=== PATIENT | female | born 1995 | race Caucasian/White ===

== ENCOUNTER 2019-05-08 15:07 | Inpatient (IN) | payer OTHER ==
[~2019-05-08 15:07] MED LIST: OXYTOCIN 30 UNITS/LR 500 ML BAG IV
[2019-05-08] MEDS ORDERED: METHYLERGONOVINE 0.2 MG INJ IM (15:30)
[2019-05-08] MEDS ORDERED: CARBOPROST 250 MCG INJ IM (15:30)
[2019-05-08] MEDS ORDERED: MISOPROSTOL 200 MCG TAB PR ×2 (15:30→22:30)
[2019-05-08] MEDS ORDERED: CEFAZOLIN 2 GM/50 ML (PMX) 50 ML IVPB (15:30)
[2019-05-08] MEDS ORDERED: OXYTOCIN 30 UNITS/LR 500 ML IV (15:30)
[2019-05-08] MEDS: LACTATED RINGER'S 1,000 ML IV ×2 (15:47→21:29)
[2019-05-08 16:06] LABS: ADD MAN DIFF? NO
[2019-05-08 16:10] LABS: BASOPHILS % 0.5 % (0.0-2.0); EOSINOPHILS # 0.1 10^3/ul (0.0-0.5); EOSINOPHILS % 0.8 % (0.0-7.0); HEMATOCRIT 39.9 % (37.0-47.0); HEMOGLOBIN 13.5 g/dl (12.0-16.0); LYMPHOCYTES # 1.8 10^3/ul (0.8-2.9); LYMPHOCYTES % 20.6 % (15.0-51.0); MEAN CORPUSCULAR HEMOGLOBIN 27.4 pg (29.0-33.0); MEAN CORPUSCULAR HGB CONC 33.8 g/dl (32.0-37.0); MEAN CORPUSCULAR VOLUME 80.9 fl (82.0-101.0); MEAN PLATELET VOLUME 10.5 fl (7.4-10.4); MONOCYTE # 0.7 10^3/ul (0.3-0.9); MONOCYTES % 7.8 % (0.0-11.0); NEUTROPHIL # 5.9 10^3/ul (1.6-7.5); NEUTROPHILS % 68.7 % (39.0-77.0); PLATELET COUNT 217 10^3/UL (140-415); RED BLOOD COUNT 4.93 10^6/ul (4.20-5.40); RED CELL DISTRIBUTION WIDTH 15.5 % (11.5-14.5)
[2019-05-08 16:10] LABS: WHITE BLOOD COUNT 8.6 10^3/ul (4.8-10.8)
[2019-05-08 16:28] LABS: INR 0.89; PROTIME 12.1 Sec (11.9-14.9); PT RATIO 0.9
[2019-05-08 16:29] LABS: PARTIAL THROMBOPLASTIN TIME 25.1 Sec (23.0-35.0)
[2019-05-08 16:57] LABS: HEPATITIS B SURFACE ANTIGEN NEGATIVE (NEGATIVE)
[2019-05-08] MEDS ORDERED: OXYTOCIN 10 UNIT INJ (22:05)
[2019-05-08] MEDS ORDERED: morphine SULFATE/PF (10 MG/10 ML) INJ (22:05)
[2019-05-08] MEDS ORDERED: ONDANSETRON 4 MG INJ (22:05)
[2019-05-08] MEDS ORDERED: PHENYLephrine 10 MG INJ (22:24)
[2019-05-08] MEDS ORDERED: OXYCODONE/ACETAMINOPHEN (5/325) TAB PO ×2 (22:30)
[2019-05-08] MEDS ORDERED: NA PHOSPHATE/BIPHOS 133 ML ENEMA PR (22:30)
[2019-05-08] MEDS ORDERED: morphine 2 MG INJ IV (23:00)
[2019-05-08] MEDS ORDERED: DIPHENHYDRAMINE 50 MG INJ IV (23:00)
[2019-05-08] MEDS ORDERED: ONDANSETRON 4 MG INJ IV (23:00)
[2019-05-08] MEDS ORDERED: NALOXONE (0.4 MG/ML) INJ IV (23:00)
[2019-05-09] MEDS: OXYTOCIN 30 UNITS/LR 500 ML IV (00:47)
[2019-05-09] MEDS: LACTATED RINGER'S 1,000 ML IV ×2 (04:51→12:43)
[2019-05-09] MEDS: IBUPROFEN 600 MG TAB PO ×4 (06:00→18:00)
[2019-05-09 08:13] LABS: ADD MAN DIFF? NO
[2019-05-09 08:15] LABS: BASOPHILS % 0.2 % (0.0-2.0); EOSINOPHILS # 0.1 10^3/ul (0.0-0.5); EOSINOPHILS % 0.6 % (0.0-7.0); HEMATOCRIT 33.4 % (37.0-47.0); HEMOGLOBIN 11.3 g/dl (12.0-16.0); LYMPHOCYTES # 1.6 10^3/ul (0.8-2.9); LYMPHOCYTES % 17.7 % (15.0-51.0); MEAN CORPUSCULAR HEMOGLOBIN 27.4 pg (29.0-33.0); MEAN CORPUSCULAR HGB CONC 33.8 g/dl (32.0-37.0); MEAN CORPUSCULAR VOLUME 80.9 fl (82.0-101.0); MEAN PLATELET VOLUME 10.8 fl (7.4-10.4); MONOCYTE # 0.9 10^3/ul (0.3-0.9); MONOCYTES % 9.4 % (0.0-11.0); NEUTROPHIL # 6.6 10^3/ul (1.6-7.5); NEUTROPHILS % 71.1 % (39.0-77.0); PLATELET COUNT 191 10^3/UL (140-415); RED BLOOD COUNT 4.13 10^6/ul (4.20-5.40); RED CELL DISTRIBUTION WIDTH 15.8 % (11.5-14.5)
[2019-05-09 08:15] LABS: WHITE BLOOD COUNT 9.3 10^3/ul (4.8-10.8)
[2019-05-09] MEDS: LANOLIN HPA 1 PKT TOP (08:27)
[2019-05-09] MEDS: SENNA/DOCUSATE NA (8.6MG/50MG) TAB PO ×2 (08:27→20:26)
[2019-05-09 15:05] LABS: RAPID PLASMA REAGIN NONREACTIVE (NR)
[2019-05-09] MEDS: KETOROLAC 30 MG INJ IV (21:57)
[2019-05-10] MEDS: IBUPROFEN 600 MG TAB PO ×4 (05:54→17:38)
[2019-05-10] MEDS: SENNA/DOCUSATE NA (8.6MG/50MG) TAB PO ×2 (09:09→21:00)
[2019-05-11] MEDS: IBUPROFEN 600 MG TAB PO ×3 (00:22→12:00)
[2019-05-11] MEDS: SENNA/DOCUSATE NA (8.6MG/50MG) TAB PO (09:00)
[2019-05-11] MEDS ORDERED: DIPHTH/TET/ACEL PERTUSS (ADULT) 0.5 ML VIAL IM* (09:00)
[2019-05-11] MEDS ORDERED: MEASLES,MUMPS,RUBELLA VACCINE INJ SC* (09:00)
[2019-05-11] MEDS: LANOLIN HPA 1 PKT TOP (09:14)
== END 2019-05-11 14:25 | disposition home or self-care (01) | DRG 788 ==
LOC: L-D 15:07 → PP1 05-09 02:25 → L-D 21:59
PROVIDERS: Specialist
PROC: 10D00Z1 Extraction of Products of Conception, Low, Open Approach (ICD-10-PCS; principal; 2019-05-08 17:00)
DX: O34.211 Maternal care for low transverse scar from previous cesarean delivery (principal); Z3A.39 39 weeks gestation of pregnancy; Z37.0 Single live birth
CPT/HCPCS: 85025; 85610; 85730; 86592; 86850; 86900; 86901; 87340; 99464